=== PATIENT | female | born 1995 | race Caucasian/White ===

== ENCOUNTER 2017-05-12 23:00 | Inpatient (IN) | payer OTHER ==
[~2017-05-12] VITALS: Ht 162.6 cm; Wt 64.4 kg
--- NOTE | ~2017-05-12 | CO ---
Unit #: [id number] #: [id number] Patient: MEGGAN ESPANA [id number] [place] [address] [id number] I MR#: [id number] NAME: MEGGAN ESPANA ROOM: [facility] Age: 21 Sex: F Admission Date: 05/13/2017 : 1995 Attending Physician: Bandar Gale M.D. Consultation Date: 05/13/2017 CONSULTATION REPORT SUBJECTIVE Meggan is a 21-year-old who sustained a self-inflicted laceration to her left wrist requiring 7 sutures prior to admission. This area was examined and detailed in her admission H and P dated 05/13/2017. Please see H and P dated 05/13/2017. Dictated by... Radha Miguel P.A.-C. for Rosita Crespo/ty TD: 05/22/2017 18:51 JOB #: [id number] CONSULTATION REPORT Page 1 of 1 X Radha Miguel CONSULTATION REPORT
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
--- NOTE | ~2017-05-12 | HP ---
Unit #: [id number] #: [id number] Patient: MEGGAN ESPANA [id number] [place] [address] [id number] I MR#: [id number] NAME: MEGGAN ESPANA ROOM: P186 Age: 21 Sex: F Admission Date: 05/13/2017 : 1995 Attending Physician: Bandar Gale M.D. Admitting Physician: Bandar Gale M.D. Primary Care Physician: Primary Care Physician No HISTORY AND PHYSICAL HISTORY OF PRESENT ILLNESS Meggan is a 21 year old admitted to [facility] because of her abuse of alcohol. She has also been self-harming, has lacerated her wrist and required stitches. PAST MEDICAL HISTORY 1. History of alcohol abuse. 2. History of illicit substance abuse. 3. History of withdrawal seizures. PAST SURGICAL HISTORY Nothing reported. ALLERGIES No known drug allergies. SOCIAL HISTORY Smokes, drinks alcohol frequently to excess. Has a history of illicit drug use. FAMILY HISTORY Medically noncontributory. REVIEW OF SYSTEMS CONSTITUTIONAL: No fever or chills. HEENT: Denies any sore throat, ear pain or runny nose. CARDIOVASCULAR: Denies chest pain, irregular heart rhythm or palpitations. CHEST: Denies shortness of breath or cough. No hemoptysis. GASTROINTESTINAL: Denies nausea, vomiting, diarrhea or chronic constipation. ENDOCRINE: Denies history of increased thirst or urination. No recent significant weight loss or gain. GENITOURINARY: Denies dysuria, frequency, or hematuria. SKIN: Denies any rashes. HEMATOLOGIC: Denies history of increased bleeding or bruising. MUSCULOSKELETAL: Denies any hot, swollen joints. No generalized muscle pain. NEUROLOGIC: Denies problems with vision or speech. No frequent, severe headaches. No numbness, tingling or weakness in any extremities. Denies loss of bladder or bowel control. CURRENT MEDICATIONS Unit #: [id number] #: [id number] Patient: MEGGAN ESPANA Detox protocol. PHYSICAL EXAMINATION GENERAL: Alert, well-nourished, in no apparent distress. VITAL SIGNS: Blood pressure 100/64, heart rate 82, respirations 16, temperature 98.6. WEIGHT: 142. HEIGHT: 5 foot 4 inches. SKIN: Warm and dry without rash. She has a significant laceration across her left forearm. Stitches are in place. There is very good skin approximation without redness, swelling, heat or pus noted. She also has multiple bug bites along her left arm. Excoriation noted. HEENT: Normocephalic. TMs not viewed. Oral and nasal passages clear. Conjunctivae clear. Pupils equal, round and reactive to light and accommodation. Extraocular movements intact. NECK: Supple without lymphadenopathy or thyromegaly. HEART: Regular rate and rhythm without murmur. LUNGS: Clear. ABDOMEN: Soft, nontender. : Not done. EXTREMITIES: No evidence of cyanosis, clubbing or edema. Moves all extremities without focal deficit. NEUROLOGICAL: Grossly within normal limits. Cranial Nerves: II: Visual eddy are intact. III, IV AND : Extraocular movements are intact. Pupils are equal, round and reactive to light. V: Facial sensation is grossly normal. VII: Facial movements and expression are normal. VIII: Auditory acuity grossly intact. IX, X: Uvula is midline. Phonation is normal. XI: Patient shrugs shoulders and turns head normally. XII: Tongue protrudes in the midline. Sensory and Motor Function: Sensory and motor sensation is grossly normal. Motor: moves all extremities well. Coordination: Gait is normal. Deep Tendon Reflexes: Intact. IMPRESSION 1. Psychiatric admission. 2. Laceration to her left forearm sustained a number of days prior to this admission. 3. Bug bites. RECOMMENDATIONS PSYCHIATRIC: Per psychiatrist. MEDICAL: 1. I see no contraindications to participating in facility's activities. 2. Keep the laceration clean with soap and water. Suture removal in seven days. MEDICAL PROGNOSIS Good. MEDICAL CONDITION Stable. Unit #: [id number] #: [id number] Patient: MEGGAN ESPANA Dictated by... Radha Miguel P.A.-C. for Rosita Crespo/pedrito TD: 05/13/2017 22:11 JOB #: [id number] HISTORY AND PHYSICAL Page 1 of 1 X Radha Miguel X HISTORY AND PHYSICAL
--- NOTE | ~2017-05-12 | PN ---
Unit #: [id number] #: [id number] Patient: KASEY ESPANA [id number] [facility] [address] [place] [address] [id number] I MR#: [id number] NAME: KASEY ESPANA ROOM: [facility] Age: 21 Sex: F Admission Date: 05/13/2017 : 1995 Attending Physician: Bandar Gale M.D. Admitting Physician: Bandar Gale M.D. Primary Care Physician: Primary Care Physician Stefanie SAGE PROGRESS NOTES DATE 05/14/2017 DISCUSSION The patient is abed resting comfortably today. Multiple attempts to arouse are unsuccessful. Her detox continues uneventfully. Dictated by... Bandar Gale M.D. CB/anselmo TD: 05/14/2017 15:31 JOB #: [id number] [facility] PROGRESS NOTES Page 1 of 1 X Bandar Gale MD X PROGRESS NOTE
--- NOTE | ~2017-05-12 | DS ---
Unit #: [id number] #: [id number] Patient: KASEY ESPANA [id number] [facility] [address] [place] [address] [id number] I MR#: [id number] NAME: KASEY ESPANA ROOM: [facility] Age: 21 Sex: F Admission Date: 05/13/2017 : 1995 Discharge Date: 05/15/2017 Attending Physician: Bandar Gale M.D. Primary Care Physician: Primary Care Physician No DISCHARGE SUMMARY REASON FOR ADMISSION The patient is a 21-year-old single white female admitted after becoming intoxicated and sustaining self-inflicted wrist lacerations. HOSPITAL COURSE The patient is admitted to the [address] [place] [address] and placed on suicide precautions. Her stay in the hospital was a brief and uneventful one. She exhibited little in the way of signs or symptoms of withdrawal and during her time in the hospital expressed appropriate contrition over the events which had led to hospitalization. By 05/15, the patient exhibited no signs or symptoms of withdrawal and vehemently denied suicidal ideations. As per request, discharge was ordered. FINAL DIAGNOSES 1. Alcohol use disorder. 2. Dysthymic disorder. FOLLOWUP CARE Followup to take place through the auspices of community mental health resources. DISCHARGE MEDICATIONS The patient is discharged on no psychotropic or other medications. PROGNOSIS Considered fair. Dictated by... Bandar Gale M.D. CB/anselmo TD: 05/16/2017 21:03 JOB #: [id number] Unit #: [id number] #: [id number] Patient: KASEY ESPANA DISCHARGE SUMMARY Page 1 of 1 X Bandar Gale MD X DISCHARGE SUMMARY
== END 2017-05-15 16:15 | disposition home or self-care (01) | DRG 897 ==
LOC: P1E 05-13 03:19
PROC: HZ2ZZZZ Detoxification Services for Substance Abuse Treatment (ICD-10-PCS; principal; 2017-05-13)
DX: F10.20 Alcohol dependence, uncomplicated (principal); F13.20 Sedative, hypnotic or anxiolytic dependence, uncomplicated; F34.1 Dysthymic disorder; F17.210 Nicotine dependence, cigarettes, uncomplicated; S51.812D Laceration without foreign body of left forearm, subsequent encounter; T14.8 Other injury of unspecified body region
CPT/HCPCS: 72220; 84703; 86592